=== PATIENT | male | born 1955 | race Caucasian/White ===

== ENCOUNTER 2018-01-06 08:17 | Day surgery (SDC) | payer BC ==
[2018-01-06] MEDS ORDERED: FENTAnyl 50 MCG/ML VIAL (10:21)
[2018-01-06] MEDS ORDERED: MIDAZOLAM 1 MG/ML 2 ML INJ (10:21)
== END 2018-01-06 14:08 | disposition home or self-care (01) ==
LOC: GIL 08:17
DX: Z12.11 Encounter for screening for malignant neoplasm of colon (principal); K64.8 Other hemorrhoids; E11.9 Type 2 diabetes mellitus without complications
CPT/HCPCS: 45378; 82962